=== PATIENT | male | born 1955 | race Caucasian/White ===

== ENCOUNTER 2020-09-06 09:00 | Inpatient (IN) ==
[2020-09-06] MEDS ORDERED: GLUCAGON 1 MG VIAL IM PRN ×2 (09:05)
[2020-09-06] MEDS ORDERED: DEXTROSE 50% 25 GM/50 ML VIAL IV PRN ×2 (09:05)
[2020-09-06] MEDS ORDERED: CLORAZEPATE 3.75 MG TABLET PO PRN (09:09)
[2020-09-06] MEDS ORDERED: NITROGLYCERIN SL 0.4 MG TABLET SL PRN (09:10)
[2020-09-06] MEDS ORDERED: MORPHINE 4 MG/1 ML VIAL IV PRN (09:10)
[2020-09-06 10:06] LABS: Basophils % 0.6 % (0.0-0.8); Eosinophils # 0.1 10*3/uL (0.0-0.87); Eosinophils % 2.1 % (0.00-10.9); Hematocrit 39.6 VOL% (42.0-52.0); Hemoglobin 13.7 GM/DL (14.0-18.0); Immature Granulocytes % 0.8 %; Immature Granulocytes Absolute 0.04 #; Lymphocytes # 0.8 10*3/uL (1.4-4.0); Lymphocytes % 16.9 % (21.2-54.2); Mean Corpuscular HGB Conc 34.6 GM/DL (32-36); Mean Corpuscular Volume 95.4 FL (87-102); Mean Platelet Volume 9.6 FL (9.6-12.0); Monocytes % 9.4 % (1.7-12.7); Neutrophils % 70.2 % (38.7-73.9); Platelet Count 170 T/CUMM (130-400); Red Blood Count 4.15 MC/CUMM (3.8-5.5); Red Cell Distribution Width 12.7 % (9.3-17.3); White Blood Count 4.8 T/CUMM (4-12)
[2020-09-06 10:25] LABS: Albumin 4.3 G/DL (3.4-5.0); Bilirubin,Total 0.6 MG/DL (0.2-1.0); Calcium 9.1 MG/DL (8.5-10.1); Potassium 4.5 MMOL/L (3.5-5.1)
[2020-09-06] MEDS: CHLORHEXIDINE 4% SOLN 118 ML BOTTLE TOP SCH ×3 (11:24→21:53)
[2020-09-06] MEDS: INSULIN REGULAR 100 UNIT/ML SUBCUT SCH ×3 (11:52→21:59)
[2020-09-06] MEDS: SODIUM CHLORIDE 0.9% 1,000 ML IV SCH (11:53)
[2020-09-06] MEDS: CHLORHEXIDINE 0.12% ORAL RINSE 60 ML BOTTLE SWISH/SPIT SCH ×2 (11:53→21:54)
[2020-09-06] MEDS ORDERED: hydrALAZINE 20 MG/1 ML VIAL IV PRN (12:37)
[2020-09-06 14:53] LABS: ABG Base Excess 2.7 MMOL/L (-2.5-2.5); ABG HCO3 26.8 MMOL/L (20-26); ABG Oxygen Saturation 99.7 % (95-100); ABG PCO2 41.2 MM HG (35-48); ABG PH 7.428 (7.35-7.45); ABG TCO2 23.9 MMOL/L (23-27)
[2020-09-06] MEDS: clonazePAM 0.5 MG TABLET PO SCH (16:52)
[2020-09-06] MEDS ORDERED: clonazePAM 0.5 MG TABLET PO SCH (21:00)
[2020-09-06] MEDS ORDERED: ATORVASTATIN 80 MG TABLET PO SCH (21:00)
[2020-09-07] MEDS ORDERED: PAPAVERINE 60 MG/2 ML VIAL ONE (04:23)
[2020-09-07] MEDS ORDERED: VANCOMYCIN 500 MG VIAL ONE (04:24)
[2020-09-07] MEDS ORDERED: VANCOMYCIN 1,000 MG VIAL ONE (04:24)
[2020-09-07] MEDS ORDERED: CEFUROXIME INJ 1,500 MG in SYRINGE 1 EACH IV ONE (05:00)
[2020-09-07] MEDS ORDERED: CHLORHEXIDINE 4% SOLN 118 ML BOTTLE TOP ONE (05:00)
[2020-09-07] MEDS ORDERED: HEPARIN/NACL 0.9% 2 UNITS/ML 500 ML IV ONE (05:32)
[2020-09-07] MEDS ORDERED: SODIUM CHLORIDE 0.9% 250 ML IV ONE (05:32)
[2020-09-07] MEDS ORDERED: ETOMIDATE 40 MG/20 ML VIAL IV ONE (05:32)
[2020-09-07] MEDS ORDERED: LIDOCAINE 2% 5 ML VIAL ONE ×2 (05:32→10:24)
[2020-09-07] MEDS ORDERED: MIDAZOLAM 10 MG/2 ML VIAL ONE ×4 (05:32)
[2020-09-07] MEDS ORDERED: LACTATED RINGERS 1,000 ML IV ONE (05:32)
[2020-09-07] MEDS ORDERED: SODIUM CHLORIDE 0.9% 1,000 ML IV ONE ×2 (05:32→10:03)
[2020-09-07] MEDS ORDERED: SODIUM CHLORIDE 0.9% 100 ML IV ONE ×2 (05:32→09:32)
[2020-09-07] MEDS ORDERED: PHENYLEPHRINE DRIP 20 MG/250 ML PREMIX IV ONE (05:32)
[2020-09-07] MEDS ORDERED: SUFentanil 250 MCG/5 ML AMP ONE ×2 (05:32)
[2020-09-07] MEDS ORDERED: AMINOCAPROIC ACID 5,000 MG/20 ML VIAL ONE (05:32)
[2020-09-07] MEDS ORDERED: VECURONIUM 10 MG VIAL IV ONE (05:33)
[2020-09-07] MEDS ORDERED: CALCIUM CHLORIDE 1,000 MG/10 ML VIAL IV ONE ×2 (05:33→10:43)
[2020-09-07] MEDS ORDERED: SEVOFLURANE 1 UNIT/15 MINUTE INH ONE ×14 (05:33→10:44)
[2020-09-07] MEDS ORDERED: DIAZEPAM 5 MG TABLET PO STA (06:05)
[2020-09-07] MEDS: clonazePAM 0.5 MG TABLET PO SCH (06:06)
[2020-09-07] MEDS ORDERED: diphenhydrAMINE 50 MG/1 ML VIAL ONE (06:26)
[2020-09-07] MEDS ORDERED: SODIUM BICARBONATE 50 MEQ/50 ML VIAL IV ONE ×2 (07:37→10:26)
[2020-09-07] MEDS ORDERED: NITROPRUSSIDE 50 MG/2 ML VIAL ONE (07:38)
[2020-09-07] MEDS ORDERED: PHENYLEPHRINE DRIP 40 MG/250 ML PREMIX IV ONE (07:38)
[2020-09-07] MEDS ORDERED: CALCIUM CHLORIDE 1,000 MG/10 ML SYRINGE IV ONE (07:38)
[2020-09-07] MEDS ORDERED: POTASSIUM CHLORIDE RIDER 100 ML IV ONE (07:38)
[2020-09-07] MEDS ORDERED: ALBUMIN 5% 12.5 GM/250 ML VIAL IV ONE ×2 (07:41→10:25)
[2020-09-07 07:42] LABS: ABG Base Excess 2.1 MMOL/L (-2.5-2.5); ABG HCO3 26.3 MMOL/L (20-26); ABG Oxygen Saturation 99.5 % (95-100); ABG PCO2 41.7 MM HG (35-48); ABG PH 7.416 (7.35-7.45); ABG TCO2 23.7 MMOL/L (23-27); Glucose Heart Surgery 206 MG/DL (74-106); Hematocrit Heart Surgery 36.7 PERCENT (42-52); Hemoglobin Heart Surgery 11.9 G/DL (14.0-18.0); Ionized Calcium Arterial 1.15 MMOL/L (1.21-1.46); PCO2 Patient Temp Arterial 41.7 MMHG; PH Patient Temp Arterial 7.416; Patient Temperature 37 CELCIUS; Potassium Heart/CVR 3.6 MMOL/L (3.5-5.1); Sodium Heart/CVR 137 MMOL/L (135-145)
[2020-09-07] MEDS ORDERED: propofoL 200 MG/20 ML VIAL IV ONE (08:53)
[2020-09-07 09:13] LABS: Hematocrit Heart Surgery 29.3 PERCENT (42-52); Hemoglobin Heart Surgery 9.5 G/DL (14.0-18.0); PCO2 Patient Temp Venous 38.8 MM HG; PH Patient Temp Venous 7.411; PO2 Patient Temp Venous 38.2 MM HG; Potassium Heart/CVR 4.8 MMOL/L (3.5-5.1); VBG Base Excess 0.2 MEQ/L (0-4); VBG HCO3 24.3 MEQ/L (24-28); VBG Oxygen Saturation 77.3 %; VBG PCO2 42.7 MMHG (41-51); VBG PH 7.382; VBG PO2 43.9 MMHG (17-40); VBG Total CO2 23.4 MMOL/L
[2020-09-07 09:44] LABS: Hematocrit Heart Surgery 30.7 PERCENT (42-52); Hemoglobin Heart Surgery 9.9 G/DL (14.0-18.0); PCO2 Patient Temp Venous 34.6 MM HG; PH Patient Temp Venous 7.426; PO2 Patient Temp Venous 39.2 MM HG; VBG Base Excess -1.1 MEQ/L (0-4); VBG HCO3 23.2 MEQ/L (24-28); VBG Oxygen Saturation 81.2 %; VBG PH 7.383; VBG PO2 48.2 MMHG (17-40); VBG Total CO2 21.8 MMOL/L
[2020-09-07] MEDS: CHLORHEXIDINE 0.12% ORAL RINSE 60 ML BOTTLE SWISH/SPIT SCH ×2 (09:47→20:44)
[2020-09-07] MEDS: INSULIN REGULAR 100 UNIT/ML SUBCUT SCH (09:47)
[2020-09-07 09:56] LABS: Bacteria,Urine Occasional /HPF (Few); Bilirubin,Urine Negative (Negative); Blood, Urine Small mg/dL (Negative); Glucose,Urine (UA) Negative (Negative); Ketones,Urine Negative (Negative); Nitrite,Urine Negative (Negative); Protein,Urine Negative; RBC,Urine 1 /HPF (0-4); Squamous Epithelial Cell,Urine Occasional /HPF (0-10); Urine Appearance CLEAR (Clear); Urine Color Straw (Yellow); Urine Specific Gravity 1.006 (1.001-1.035); Urine Urobilinogen < 2.0 EU/DL (0.2-1.0)
[2020-09-07] MEDS ORDERED: ALBUMIN 25% 25 GM/100 ML VIAL IV ONE (10:24)
[2020-09-07] MEDS ORDERED: MAGNESIUM SULFATE 5 GM/10 ML VIAL IV ONE (10:24)
[2020-09-07] MEDS ORDERED: methylPREDNISolone SOD SUC 1,000 MG/8 ML VIAL ONE (10:24)
[2020-09-07] MEDS ORDERED: PROTAMINE SULFATE 250 MG/25 ML VIAL IV ONE (10:25)
[2020-09-07] MEDS ORDERED: MANNITOL 100 GM/500 ML BAG IV ONE (10:25)
[2020-09-07] MEDS ORDERED: DEXTROSE 5% KCL 20 MEQ 20 MEQ/1,000 ML BAG IV ONE (10:25)
[2020-09-07] MEDS ORDERED: PROTAMINE SULFATE 50 MG/5 ML VIAL IV ONE (10:26)
[2020-09-07] MEDS ORDERED: FUROSEMIDE 20 MG/2 ML VIAL ONE (10:26)
[2020-09-07] MEDS ORDERED: HEPARIN 10,000 UNIT/10 ML VIAL ONE (10:26)
[2020-09-07 10:33] LABS: ABG Base Excess -2.8 MMOL/L (-2.5-2.5); ABG HCO3 21.9 MMOL/L (20-26); ABG Oxygen Saturation 97.9 % (95-100); ABG PCO2 37.3 MM HG (35-48); ABG PH 7.386 (7.35-7.45); ABG PO2 136.4 MM HG (80-95); Glucose Heart Surgery 295 MG/DL (74-106); Hemoglobin Heart Surgery 10.7 G/DL (14.0-18.0); Ionized Calcium Arterial 1.03 MMOL/L (1.21-1.46); PCO2 Patient Temp Arterial 37.3 MMHG; PH Patient Temp Arterial 7.386; PO2 Patient Temp Arterial 136.4 MM HG; Patient Temperature 37 CELCIUS; Potassium Heart/CVR 4.5 MMOL/L (3.5-5.1); Sodium Heart/CVR 129 MMOL/L (135-145)
[2020-09-07] MEDS ORDERED: CALCIUM CHLORIDE 1,000 MG/10 ML SYRINGE IV PRN (11:25)
[2020-09-07] MEDS ORDERED: CHLORHEXIDINE 4% SOLN 118 ML BOTTLE TOP PRN (11:25)
[2020-09-07] MEDS ORDERED: LACTATED RINGERS 250 ML IV PRN (11:25)
[2020-09-07] MEDS ORDERED: MAGNESIUM SULF RIDER 4 GM in PREMIX 1 EACH IV PRN (11:25)
[2020-09-07] MEDS ORDERED: PHENYLEPHRINE DRIP 40 MG/250 ML PREMIX IV PRN (11:25)
[2020-09-07] MEDS ORDERED: VECURONIUM 10 MG VIAL IV PRN ×2 (11:25)
[2020-09-07] MEDS ORDERED: ACETAMINOPHEN 650 MG SUPP RECTAL PRN (11:25)
[2020-09-07] MEDS ORDERED: DEXTROSE 50% 25 GM/50 ML VIAL IV PRN ×2 (11:25)
[2020-09-07] MEDS ORDERED: MIDAZOLAM 2 MG/2 ML VIAL IV PRN (11:25)
[2020-09-07] MEDS ORDERED: INSULIN REGULAR 100 UNIT/ML IV ONE (11:25)
[2020-09-07] MEDS ORDERED: NITROPRUSSIDE 100 MG in DEXTROSE 5% 250 ML IV PRN (11:25)
[2020-09-07] MEDS ORDERED: MIDAZOLAM 10 MG/2 ML VIAL IV PRN (11:25)
[2020-09-07] MEDS ORDERED: MORPHINE 10 MG/1 ML VIAL IV PRN (11:25)
[2020-09-07] MEDS ORDERED: ONDANSETRON 4 MG/2 ML VIAL IV PRN (11:25)
[2020-09-07] MEDS ORDERED: MAGNESIUM SULF RIDER 2 GM in PREMIX 1 EACH IV PRN (11:25)
[2020-09-07] MEDS ORDERED: INSULIN REGULAR 100 UNIT/ML IV PRN (11:25)
[2020-09-07] MEDS ORDERED: POTASSIUM CHLORIDE RIDER 10 MEQ in PREMIX 1 EACH IV PRN (11:25)
[2020-09-07] MEDS ORDERED: SODIUM CHLORIDE 0.45% 1,000 ML IV SCH ×2 (11:25)
[2020-09-07 12:19] LABS: ABG HCO3 23.6 MMOL/L (20-26); ABG PCO2 43.6 MM HG (35-48); Glucose Heart Surgery 273 MG/DL (74-106); Hematocrit Heart Surgery 35.6 PERCENT (42-52); Hemoglobin Heart Surgery 11.6 G/DL (14.0-18.0); Potassium Heart/CVR 4.3 MMOL/L (3.5-5.1)
[2020-09-07 12:20] LABS: Basophils % 0.3 % (0.0-0.8); Eosinophils % 0.1 % (0.00-10.9); Hematocrit 32.1 VOL% (42.0-52.0); Hemoglobin 11.3 GM/DL (14.0-18.0); Immature Granulocytes Absolute 0.07 #; Lymphocytes # 0.3 10*3/uL (1.4-4.0); Lymphocytes % 4.8 % (21.2-54.2); Mean Corpuscular HGB Conc 35.2 GM/DL (32-36); Mean Corpuscular Volume 93.3 FL (87-102); Mean Platelet Volume 9.4 FL (9.6-12.0); Monocytes % 5.9 % (1.7-12.7); Neutrophils % 87.9 % (38.7-73.9); Platelet Count 116 T/CUMM (130-400); Red Blood Count 3.44 MC/CUMM (3.8-5.5); Red Cell Distribution Width 12.9 % (9.3-17.3); White Blood Count 7.1 T/CUMM (4-12)
[2020-09-07 12:30] LABS: INR 1.3; PT Patient Result 13.5 SECS (9.8-11.9); Partial Thromboplastin Time 28.5 SECS (23.9-33.8)
[2020-09-07] MEDS: SODIUM CHLORIDE 0.9% 1,000 ML IV SCH (12:32)
[2020-09-07] MEDS: INSULIN REGULAR DRIP 100 ML IV SCH ×2 (12:34→21:10)
[2020-09-07 12:42] LABS: Lymphocytes 3 % (20-55); Segmented Neutrophils 92 % (50-85); Total Cells Counted 100
[2020-09-07 12:43] LABS: Ovalocytes Few
[2020-09-07 12:44] LABS: Platelet Estimate Normal; Polychromasia Slight
[2020-09-07 12:46] LABS: Albumin 3.4 G/DL (3.4-5.0); Bilirubin,Total 2.9 MG/DL (0.2-1.0); Calcium 7.9 MG/DL (8.5-10.1); Osmolality,Calculated 275.2 MOS/KG (273-304); Potassium 4.2 MMOL/L (3.5-5.1); Total Protein 5.2 G/DL (6.4-8.2)
[2020-09-07 12:51] LABS: CKMB % 9.1 %
[2020-09-07 12:53] LABS: Troponin I 2.7 NG/ML (0.00-0.045)
[2020-09-07] MEDS: ALBUMIN 5% 12.5 GM in PREMIX 1 EACH IV PRN ×2 (13:58→14:54)
[2020-09-07 14:08] LABS: ABG Base Excess -0.7 MMOL/L (-2.5-2.5); ABG HCO3 23.8 MMOL/L (20-26); ABG Oxygen Saturation 96.3 % (95-100); ABG PCO2 42.6 MM HG (35-48); ABG PO2 83.7 MM HG (80-95); ABG TCO2 21.9 MMOL/L (23-27); Glucose Heart Surgery 241 MG/DL (74-106); Hematocrit Heart Surgery 36.6 PERCENT (42-52); Hemoglobin Heart Surgery 11.9 G/DL (14.0-18.0); Potassium Heart/CVR 3.9 MMOL/L (3.5-5.1)
[2020-09-07] MEDS: MORPHINE 4 MG/1 ML VIAL IV PRN ×2 (17:20→21:38)
[2020-09-07] MEDS ORDERED: FUROSEMIDE 40 MG/4 ML VIAL IV PRN (18:22)
[2020-09-07 18:35] LABS: ABG Base Excess -2.9 MMOL/L (-2.5-2.5); ABG Oxygen Saturation 94.8 % (95-100); ABG PCO2 51.9 MM HG (35-48); ABG PH 7.281 (7.35-7.45); ABG PO2 83.8 MM HG (80-95); ABG TCO2 22.2 MMOL/L (23-27); Glucose Heart Surgery 165 MG/DL (74-106); Hematocrit Heart Surgery 35.2 PERCENT (42-52); Hemoglobin Heart Surgery 11.4 G/DL (14.0-18.0); Potassium Heart/CVR 3.1 MMOL/L (3.5-5.1)
[2020-09-07] MEDS: POTASSIUM CHLORIDE RIDER 20 MEQ in PREMIX 1 EACH IV PRN ×2 (18:46→19:20)
[2020-09-07] MEDS: CEFUROXIME INJ 1,500 MG in SYRINGE 1 EACH IV SCH (18:47)
[2020-09-07] MEDS: KETOROLAC 30 MG/1 ML VIAL IV SCH (19:45)
[2020-09-07 19:46] LABS: ABG Base Excess -3.9 MMOL/L (-2.5-2.5); ABG HCO3 21.1 MMOL/L (20-26); ABG Oxygen Saturation 94.1 % (95-100); ABG PCO2 48.2 MM HG (35-48); ABG PH 7.287 (7.35-7.45); ABG PO2 78.8 MM HG (80-95); ABG TCO2 20.9 MMOL/L (23-27); Glucose Heart Surgery 153 MG/DL (74-106); Potassium Heart/CVR 3.6 MMOL/L (3.5-5.1)
[2020-09-07 20:07] LABS: CKMB % 9.5 %
[2020-09-07 20:10] LABS: Troponin I 1.91 NG/ML (0.00-0.045)
[2020-09-07 21:31] LABS: ABG Base Excess -2.5 MMOL/L (-2.5-2.5); ABG HCO3 22.3 MMOL/L (20-26); ABG Oxygen Saturation 94.2 % (95-100); ABG PCO2 44.2 MM HG (35-48); ABG PH 7.333 (7.35-7.45); ABG PO2 76.4 MM HG (80-95); ABG TCO2 21.2 MMOL/L (23-27); Glucose Heart Surgery 137 MG/DL (74-106); Hematocrit Heart Surgery 33.8 PERCENT (42-52); Potassium Heart/CVR 3.9 MMOL/L (3.5-5.1)
[2020-09-07 23:15] LABS: ABG Base Excess -1.2 MMOL/L (-2.5-2.5); ABG HCO3 23.4 MMOL/L (20-26); ABG Oxygen Saturation 97.5 % (95-100); ABG PCO2 46.8 MM HG (35-48); ABG PH 7.334 (7.35-7.45); ABG PO2 96.6 MM HG (80-95); ABG TCO2 22.6 MMOL/L (23-27); Glucose Heart Surgery 120 MG/DL (74-106); Hematocrit Heart Surgery 32.8 PERCENT (42-52); Hemoglobin Heart Surgery 10.6 G/DL (14.0-18.0); Potassium Heart/CVR 4.1 MMOL/L (3.5-5.1)
[2020-09-08 00:03] LABS: ABG Base Excess -0.2 MMOL/L (-2.5-2.5); ABG HCO3 24.2 MMOL/L (20-26); ABG Oxygen Saturation 96.7 % (95-100); ABG PCO2 45.1 MM HG (35-48); ABG PO2 84.3 MM HG (80-95); ABG TCO2 23.1 MMOL/L (23-27); Glucose Heart Surgery 122 MG/DL (74-106); Hematocrit Heart Surgery 33.3 PERCENT (42-52); Hemoglobin Heart Surgery 10.8 G/DL (14.0-18.0); Potassium Heart/CVR 4.1 MMOL/L (3.5-5.1)
[2020-09-08] MEDS: KETOROLAC 30 MG/1 ML VIAL IV SCH ×4 (01:12→21:01)
[2020-09-08 01:17] LABS: ABG Base Excess -0.5 MMOL/L (-2.5-2.5); ABG Oxygen Saturation 95.1 % (95-100); ABG PCO2 45.3 MM HG (35-48); ABG PH 7.355 (7.35-7.45); ABG PO2 77.4 MM HG (80-95); Glucose Heart Surgery 131 MG/DL (74-106); Hematocrit Heart Surgery 32.4 PERCENT (42-52); Hemoglobin Heart Surgery 10.5 G/DL (14.0-18.0); Potassium Heart/CVR 4.1 MMOL/L (3.5-5.1)
[2020-09-08 04:03] LABS: ABG Base Excess 0.7 MMOL/L (-2.5-2.5); ABG Oxygen Saturation 92.9 % (95-100); ABG PCO2 46.7 MM HG (35-48); ABG PH 7.362 (7.35-7.45); ABG PO2 66.6 MM HG (80-95); ABG TCO2 24.2 MMOL/L (23-27); Glucose Heart Surgery 135 MG/DL (74-106); Potassium Heart/CVR 4.8 MMOL/L (3.5-5.1)
[2020-09-08 04:19] LABS: Basophils % 0.1 % (0.0-0.8); Hematocrit 28.9 VOL% (42.0-52.0); Hemoglobin 9.8 GM/DL (14.0-18.0); Immature Granulocytes % 0.7 %; Immature Granulocytes Absolute 0.08 #; Lymphocytes # 0.4 10*3/uL (1.4-4.0); Lymphocytes % 3.6 % (21.2-54.2); Mean Corpuscular HGB Conc 33.9 GM/DL (32-36); Mean Corpuscular Volume 96.3 FL (87-102); Mean Platelet Volume 10.3 FL (9.6-12.0); Monocytes % 5.2 % (1.7-12.7); Neutrophils % 90.4 % (38.7-73.9); Platelet Count 112 T/CUMM (130-400); White Blood Count 11.4 T/CUMM (4-12)
[2020-09-08 04:37] LABS: Band Neutrophils 1 % (0-10); Hypochromasia 1+; Lymphocytes 1 % (20-55); Platelet Estimate Decreased; Segmented Neutrophils 93 % (50-85); Total Cells Counted 100
[2020-09-08 04:38] LABS: Albumin 3.8 G/DL (3.4-5.0); Bilirubin,Direct 0.36 MG/DL (0.0-0.20); Bilirubin,Total 0.6 MG/DL (0.2-1.0); Calcium 7.9 MG/DL (8.5-10.1); Osmolality,Calculated 275.7 MOS/KG (273-304); Potassium 4.8 MMOL/L (3.5-5.1); Total Protein 5.8 G/DL (6.4-8.2)
[2020-09-08 04:45] LABS: CKMB % 6.6 %
[2020-09-08 04:51] LABS: Troponin I 2.55 NG/ML (0.00-0.045)
[2020-09-08] MEDS: MORPHINE 4 MG/1 ML VIAL IV PRN (05:08)
[2020-09-08] MEDS: CEFUROXIME INJ 1,500 MG in SYRINGE 1 EACH IV SCH ×2 (06:06→19:00)
[2020-09-08] MEDS ORDERED: oxyCODONE/ACETAMINOPHEN 5-325 MG TABLET PO ONE (06:23)
[2020-09-08] MEDS: INSULIN REGULAR 100 UNIT/ML SUBCUT SCH ×4 (07:27→21:01)
[2020-09-08] MEDS: CHLORHEXIDINE 0.12% ORAL RINSE 60 ML BOTTLE SWISH/SPIT SCH ×3 (08:43→21:01)
[2020-09-08] MEDS ORDERED: ONDANSETRON 4 MG/2 ML VIAL IV PRN (09:03)
[2020-09-08] MEDS ORDERED: GLUCAGON 1 MG VIAL IM PRN (09:03)
[2020-09-08] MEDS ORDERED: MAGNESIUM SULF RIDER 2 GM in PREMIX 1 EACH IV PRN (09:03)
[2020-09-08] MEDS ORDERED: MAGNESIUM SULF RIDER 4 GM in PREMIX 1 EACH IV PRN (09:03)
[2020-09-08] MEDS ORDERED: ALUMINUM/MAGNES/SIMETH MAX STR 30 ML UDCUP PO PRN (09:03)
[2020-09-08] MEDS ORDERED: ACETAMINOPHEN 325 MG TABLET PO PRN (09:03)
[2020-09-08] MEDS ORDERED: DEXTROSE 50% 25 GM/50 ML VIAL IV PRN (09:03)
[2020-09-08] MEDS: allopurinoL 300 MG TABLET PO SCH (09:43)
[2020-09-08] MEDS: FERROUS SULFATE 325 MG TABLET PO SCH (09:43)
[2020-09-08] MEDS: lisinopriL 20 MG TABLET PO SCH (09:43)
[2020-09-08] MEDS: glyBURIDE 5 MG TABLET PO SCH (09:43)
[2020-09-08] MEDS: DOCUSATE SODIUM 100 MG CAPSULE PO SCH (09:43)
[2020-09-08] MEDS: SERTRALINE 100 MG TABLET PO SCH (09:43)
[2020-09-08] MEDS: ASPIRIN EC 325 MG TABLET PO SCH (09:43)
[2020-09-08] MEDS: clonazePAM 0.5 MG TABLET PO SCH ×4 (09:43→21:01)
[2020-09-08] MEDS: PANTOPRAZOLE 40 MG TABLET PO SCH (09:43)
[2020-09-08] MEDS: METOPROLOL SUCCINATE XL 50 MG TABLET PO SCH (09:44)
[2020-09-08] MEDS: SODIUM CHLOR 0.45% KCL 20 MEQ 20 MEQ/1,000 ML BAG IV SCH ×2 (09:44→18:50)
[2020-09-09] MEDS: KETOROLAC 30 MG/1 ML VIAL IV SCH ×4 (01:30→20:47)
[2020-09-09 04:12] LABS: Basophils % 0.1 % (0.0-0.8); Hematocrit 28.7 VOL% (42.0-52.0); Hemoglobin 9.6 GM/DL (14.0-18.0); Immature Granulocytes % 1.2 %; Immature Granulocytes Absolute 0.17 #; Lymphocytes % 7.4 % (21.2-54.2); Mean Corpuscular HGB Conc 33.4 GM/DL (32-36); Mean Platelet Volume 10.7 FL (9.6-12.0); Monocytes % 7.4 % (1.7-12.7); Neutrophils % 83.9 % (38.7-73.9); Platelet Count 121 T/CUMM (130-400); Red Cell Distribution Width 13.6 % (9.3-17.3); White Blood Count 13.8 T/CUMM (4-12)
[2020-09-09 04:28] LABS: Albumin 3.7 G/DL (3.4-5.0); Bilirubin,Direct 0.26 MG/DL (0.0-0.20); Bilirubin,Total 0.6 MG/DL (0.2-1.0); Calcium 7.8 MG/DL (8.5-10.1); Osmolality,Calculated 276.2 MOS/KG (273-304); Potassium 3.9 MMOL/L (3.5-5.1); Total Protein 6.5 G/DL (6.4-8.2)
[2020-09-09 04:32] LABS: Albumin 3.8 G/DL (3.4-5.0); Bilirubin,Direct 0.3 MG/DL (0.0-0.20); Bilirubin,Total 1.3 MG/DL (0.2-1.0); CKMB % 3.3 %; Total Protein 6.2 G/DL (6.4-8.2)
[2020-09-09 04:34] LABS: Troponin I 1.13 NG/ML (0.00-0.045)
[2020-09-09] MEDS ORDERED: HYDROmorphone 2 MG/1 ML VIAL IV PRN ×2 (05:40→08:18)
[2020-09-09] MEDS ORDERED: FUROSEMIDE 40 MG/4 ML VIAL IV ONE (06:00)
[2020-09-09] MEDS: glyBURIDE 5 MG TABLET PO SCH (08:53)
[2020-09-09] MEDS: lisinopriL 20 MG TABLET PO SCH (08:53)
[2020-09-09] MEDS: ASPIRIN EC 325 MG TABLET PO SCH (08:53)
[2020-09-09] MEDS: clonazePAM 0.5 MG TABLET PO SCH ×3 (08:53→20:48)
[2020-09-09] MEDS: DOCUSATE SODIUM 100 MG CAPSULE PO SCH (08:53)
[2020-09-09] MEDS: METOPROLOL SUCCINATE XL 50 MG TABLET PO SCH (08:54)
[2020-09-09] MEDS: POTASSIUM CHLORIDE 20 MEQ TABLET PO PRN ×2 (08:54→11:02)
[2020-09-09] MEDS: PANTOPRAZOLE 40 MG TABLET PO SCH (08:54)
[2020-09-09] MEDS: SERTRALINE 100 MG TABLET PO SCH (08:54)
[2020-09-09] MEDS: FERROUS SULFATE 325 MG TABLET PO SCH (08:54)
[2020-09-09] MEDS: allopurinoL 300 MG TABLET PO SCH (08:54)
[2020-09-09] MEDS: INSULIN REGULAR 100 UNIT/ML SUBCUT SCH ×4 (09:04→22:30)
[2020-09-09] MEDS: CHLORHEXIDINE 0.12% ORAL RINSE 60 ML BOTTLE SWISH/SPIT SCH ×2 (09:06→20:48)
[2020-09-09] MEDS: amLODIPine 5 MG TABLET PO SCH (10:04)
[2020-09-09] MEDS: ZALEPLON 5 MG CAPSULE PO PRN (20:56)
[2020-09-10] MEDS: KETOROLAC 30 MG/1 ML VIAL IV SCH ×4 (02:37→20:29)
[2020-09-10 05:20] LABS: Basophils % 0.1 % (0.0-0.8); Eosinophils # 0.1 10*3/uL (0.0-0.87); Eosinophils % 0.8 % (0.00-10.9); Hematocrit 27.2 VOL% (42.0-52.0); Hemoglobin 9.1 GM/DL (14.0-18.0); Immature Granulocytes % 1.3 %; Immature Granulocytes Absolute 0.12 #; Lymphocytes % 10.7 % (21.2-54.2); Mean Corpuscular HGB Conc 33.5 GM/DL (32-36); Mean Platelet Volume 10.4 FL (9.6-12.0); Monocytes % 7.4 % (1.7-12.7); Neutrophils % 79.7 % (38.7-73.9); Platelet Count 123 T/CUMM (130-400); Red Blood Count 2.72 MC/CUMM (3.8-5.5); Red Cell Distribution Width 13.4 % (9.3-17.3)
[2020-09-10 05:35] LABS: Albumin 3.4 G/DL (3.4-5.0); Bilirubin,Direct 0.33 MG/DL (0.0-0.20); Bilirubin,Total 0.8 MG/DL (0.2-1.0); Osmolality,Calculated 272.1 MOS/KG (273-304); Potassium 3.6 MMOL/L (3.5-5.1); Total Protein 6.5 G/DL (6.4-8.2)
[2020-09-10 05:40] LABS: Alanine Aminotransferase 63 U/L (16-61); Albumin 3.4 G/DL (3.4-5.0); Alkaline Phosphatase 77 U/L (45-117); Aspartate Amino Transferase 31 U/L (0-37); Bilirubin,Indirect 1.2 MG/DL (0.0-1.0); Total Protein 6.5 G/DL (6.4-8.2)
[2020-09-10 05:42] LABS: Troponin I 0.626 NG/ML (0.00-0.045)
[2020-09-10 06:01] LABS: White Blood Count 9.2 T/CUMM (4-12)
[2020-09-10 06:18] LABS: Hypochromasia 1+; Microcytosis 1+; Ovalocytes Slight; Platelet Estimate Normal
[2020-09-10] MEDS: INSULIN REGULAR 100 UNIT/ML SUBCUT SCH ×4 (08:22→21:16)
[2020-09-10] MEDS: ASPIRIN EC 325 MG TABLET PO SCH (08:29)
[2020-09-10] MEDS: amLODIPine 5 MG TABLET PO SCH (08:29)
[2020-09-10] MEDS: DOCUSATE SODIUM 100 MG CAPSULE PO SCH (08:29)
[2020-09-10] MEDS: POTASSIUM CHLORIDE 20 MEQ TABLET PO PRN ×3 (08:29→20:28)
[2020-09-10] MEDS: MAGNESIUM HYDROXIDE SUSP 30 ML UDCUP PO PRN (08:29)
[2020-09-10] MEDS: SERTRALINE 100 MG TABLET PO SCH (08:30)
[2020-09-10] MEDS: glyBURIDE 5 MG TABLET PO SCH (08:30)
[2020-09-10] MEDS: PANTOPRAZOLE 40 MG TABLET PO SCH (08:30)
[2020-09-10] MEDS: FERROUS SULFATE 325 MG TABLET PO SCH (08:30)
[2020-09-10] MEDS: clonazePAM 0.5 MG TABLET PO SCH ×3 (08:31→20:29)
[2020-09-10] MEDS: allopurinoL 300 MG TABLET PO SCH (08:31)
[2020-09-10] MEDS: METOPROLOL SUCCINATE XL 50 MG TABLET PO SCH (08:31)
[2020-09-10] MEDS: CHLORHEXIDINE 0.12% ORAL RINSE 60 ML BOTTLE SWISH/SPIT SCH ×2 (08:32→21:09)
[2020-09-10] MEDS: lisinopriL 20 MG TABLET PO SCH (08:42)
[2020-09-10] MEDS: ZALEPLON 5 MG CAPSULE PO PRN (20:28)
[2020-09-11] MEDS: KETOROLAC 30 MG/1 ML VIAL IV SCH ×4 (00:42→20:40)
[2020-09-11 05:52] LABS: Basophils % 0.3 % (0.0-0.8); Eosinophils # 0.1 10*3/uL (0.0-0.87); Eosinophils % 1.7 % (0.00-10.9); Hematocrit 26.5 VOL% (42.0-52.0); Hemoglobin 8.6 GM/DL (14.0-18.0); Immature Granulocytes % 1.1 %; Immature Granulocytes Absolute 0.09 #; Lymphocytes % 13.2 % (21.2-54.2); Mean Corpuscular HGB Conc 32.5 GM/DL (32-36); Mean Corpuscular Volume 100.4 FL (87-102); Mean Platelet Volume 10.4 FL (9.6-12.0); Monocytes % 10.3 % (1.7-12.7); Neutrophils % 73.4 % (38.7-73.9); Platelet Count 135 T/CUMM (130-400); Red Blood Count 2.64 MC/CUMM (3.8-5.5); Red Cell Distribution Width 13.1 % (9.3-17.3); White Blood Count 7.9 T/CUMM (4-12)
[2020-09-11 06:12] LABS: Albumin 3.3 G/DL (3.4-5.0); Bilirubin,Total 0.9 MG/DL (0.2-1.0); Calcium 7.8 MG/DL (8.5-10.1); Osmolality,Calculated 273.1 MOS/KG (273-304); Potassium 4.4 MMOL/L (3.5-5.1); Total Protein 6.6 G/DL (6.4-8.2)
[2020-09-11] MEDS: INSULIN REGULAR 100 UNIT/ML SUBCUT SCH ×4 (07:32→22:13)
[2020-09-11] MEDS: MAGNESIUM HYDROXIDE SUSP 30 ML UDCUP PO PRN (08:49)
[2020-09-11] MEDS: lisinopriL 20 MG TABLET PO SCH (08:50)
[2020-09-11] MEDS: clonazePAM 0.5 MG TABLET PO SCH ×3 (08:50→20:41)
[2020-09-11] MEDS: DOCUSATE SODIUM 100 MG CAPSULE PO SCH (08:51)
[2020-09-11] MEDS: glyBURIDE 5 MG TABLET PO SCH (08:51)
[2020-09-11] MEDS: METOPROLOL SUCCINATE XL 50 MG TABLET PO SCH (08:51)
[2020-09-11] MEDS: FERROUS SULFATE 325 MG TABLET PO SCH (08:51)
[2020-09-11] MEDS: allopurinoL 300 MG TABLET PO SCH (08:52)
[2020-09-11] MEDS: SERTRALINE 100 MG TABLET PO SCH (08:52)
[2020-09-11] MEDS: ASPIRIN EC 325 MG TABLET PO SCH (08:52)
[2020-09-11] MEDS: PANTOPRAZOLE 40 MG TABLET PO SCH (08:52)
[2020-09-11] MEDS: amLODIPine 10 MG TABLET PO SCH (08:52)
[2020-09-11] MEDS: CHLORHEXIDINE 0.12% ORAL RINSE 60 ML BOTTLE SWISH/SPIT SCH ×2 (08:53→20:44)
[2020-09-11] MEDS: CHLORTHALIDONE 25 MG TABLET PO SCH (13:02)
[2020-09-11] MEDS: POLYETHYLENE GLYCOL POWDER 17 GM PACK PO SCH (13:06)
[2020-09-11] MEDS: ZALEPLON 5 MG CAPSULE PO PRN (20:41)
[2020-09-12] MEDS: KETOROLAC 30 MG/1 ML VIAL IV SCH ×2 (00:31→08:43)
[2020-09-12 05:48] LABS: Basophils % 0.3 % (0.0-0.8); Eosinophils # 0.1 10*3/uL (0.0-0.87); Eosinophils % 1.8 % (0.00-10.9); Hematocrit 27.8 VOL% (42.0-52.0); Hemoglobin 8.9 GM/DL (14.0-18.0); Immature Granulocytes % 2.1 %; Immature Granulocytes Absolute 0.15 #; Lymphocytes # 0.7 10*3/uL (1.4-4.0); Lymphocytes % 10.3 % (21.2-54.2); Mean Corpuscular Volume 101.5 FL (87-102); Mean Platelet Volume 10.2 FL (9.6-12.0); Monocytes % 11.7 % (1.7-12.7); Neutrophils % 73.8 % (38.7-73.9); Platelet Count 168 T/CUMM (130-400); Red Blood Count 2.74 MC/CUMM (3.8-5.5); Red Cell Distribution Width 13.2 % (9.3-17.3); White Blood Count 7.2 T/CUMM (4-12)
[2020-09-12 06:14] LABS: Alanine Aminotransferase 87 U/L (16-61); Albumin 3.3 G/DL (3.4-5.0); Alkaline Phosphatase 115 U/L (45-117); Aspartate Amino Transferase 45 U/L (0-37); Bilirubin,Indirect 1.4 MG/DL (0.0-1.0); Blood Urea Nitrogen 13 MG/DL (7-18); Calcium 8.5 MG/DL (8.5-10.1); Carbon Dioxide 27 MMOL/L (21-32); Estimated Glom Filtration Rate 116 ML/MIN; Glucose 125 MG/DL (74-106); Osmolality,Calculated 270.1 MOS/KG (273-304); Potassium 4.5 MMOL/L (3.5-5.1); Sodium 135 MMOL/L (136-145); Total Protein 6.7 G/DL (6.4-8.2)
[2020-09-12 06:16] LABS: Troponin I 0.256 NG/ML (0.00-0.045)
[2020-09-12] MEDS: INSULIN REGULAR 100 UNIT/ML SUBCUT SCH (08:09)
[2020-09-12] MEDS: glyBURIDE 5 MG TABLET PO SCH (08:44)
[2020-09-12] MEDS: METOPROLOL SUCCINATE XL 50 MG TABLET PO SCH (08:45)
[2020-09-12] MEDS: clonazePAM 0.5 MG TABLET PO SCH (08:45)
[2020-09-12] MEDS: lisinopriL 20 MG TABLET PO SCH (08:45)
[2020-09-12] MEDS: amLODIPine 10 MG TABLET PO SCH (08:45)
[2020-09-12] MEDS: ASPIRIN EC 325 MG TABLET PO SCH (08:45)
[2020-09-12] MEDS: FERROUS SULFATE 325 MG TABLET PO SCH (08:46)
[2020-09-12] MEDS: CHLORTHALIDONE 25 MG TABLET PO SCH (08:46)
[2020-09-12] MEDS: allopurinoL 300 MG TABLET PO SCH (08:46)
[2020-09-12] MEDS: PANTOPRAZOLE 40 MG TABLET PO SCH (08:46)
[2020-09-12] MEDS: DOCUSATE SODIUM 100 MG CAPSULE PO SCH (08:46)
[2020-09-12] MEDS: SERTRALINE 100 MG TABLET PO SCH (08:46)
[2020-09-12] MEDS: POLYETHYLENE GLYCOL POWDER 17 GM PACK PO SCH (08:47)
[2020-09-12] MEDS: CHLORHEXIDINE 0.12% ORAL RINSE 60 ML BOTTLE SWISH/SPIT SCH (08:47)
[2020-09-12 12:04] VITALS: BP 165/82
== END 2020-09-12 12:48 | disposition home health service (06) | DRG 235 ==
LOC: N.5E 09:01 → N.CVR 09-07 10:44 → N.TELES 09-08 17:27

== ENCOUNTER 2021-05-03 15:28 | Inpatient (IN) ==
[2021-05-03] MEDS ORDERED: SODIUM CHLORIDE 0.9% 1,000 ML IV STA (16:25)
[2021-05-03 16:44] LABS: Basophils % 0.3 % (0.0-0.8); Eosinophils % 0.6 % (0.00-10.9); Hematocrit 23.4 VOL% (42.0-52.0); Hemoglobin 7.7 GM/DL (14.0-18.0); Immature Granulocytes % 0.6 %; Immature Granulocytes Absolute 0.04 #; Lymphocytes # 0.9 10*3/uL (1.4-4.0); Lymphocytes % 12.9 % (21.2-54.2); Mean Corpuscular HGB Conc 32.9 GM/DL (32-36); Mean Corpuscular Volume 102.6 FL (87-102); Mean Platelet Volume 10.2 FL (9.6-12.0); Monocytes % 11.5 % (1.7-12.7); Neutrophils % 74.1 % (38.7-73.9); Platelet Count 183 T/CUMM (130-400); Red Blood Count 2.28 MC/CUMM (3.8-5.5); Red Cell Distribution Width 14.4 % (9.3-17.3); White Blood Count 6.7 T/CUMM (4-12)
[2021-05-03 17:08] LABS: Albumin 3.4 G/DL (3.4-5.0); Bilirubin,Total 0.6 MG/DL (0.20-1.00); Calcium 9.2 MG/DL (8.5-10.1); Osmolality,Calculated 268.4 MOS/KG (273-304); Potassium 3.7 MMOL/L (3.5-5.1); Total Protein 6.5 G/DL (6.4-8.2)
[2021-05-03 18:21] LABS: Bilirubin,Urine Negative (Negative); Blood, Urine Negative (Negative); Glucose,Urine (UA) >=500 mg/dL (Negative); Ketones,Urine Negative (Negative); Nitrite,Urine Negative (Negative); Protein,Urine Negative; RBC,Urine 1 /HPF (0-4); Urine Appearance CLEAR (Clear); Urine Color Colorless (Yellow); Urine Urobilinogen < 2.0 EU/DL (0.2-1.0)
[2021-05-03] MEDS ORDERED: GLUCAGON 1 MG VIAL IM PRN (19:26)
[2021-05-03] MEDS ORDERED: ONDANSETRON 4 MG/2 ML VIAL IV PRN (19:26)
[2021-05-03] MEDS ORDERED: SODIUM CHLORIDE 0.9% 1,000 ML IV PRN (19:28)
[2021-05-03] MEDS ORDERED: DEXTROSE 50% 25 GM/50 ML SYRINGE IV PRN (19:55)
[2021-05-03 20:10] LABS: Folate 13.32 NG/ML (5.38-24.0)
[2021-05-03] MEDS: SODIUM CHLORIDE 0.9% 1,000 ML IV SCH (20:24)
[2021-05-03] MEDS ORDERED: PREGABALIN 50 MG CAPSULE PO SCH (21:00)
[2021-05-03] MEDS: INSULIN REGULAR 100 UNIT/ML SUBCUT SCH (22:59)
[2021-05-04 00:40] LABS: Basophils % 0.2 % (0.0-0.8); Eosinophils # 0.1 10*3/uL (0.0-0.87); Eosinophils % 1.1 % (0.00-10.9); Hematocrit 26.2 VOL% (42.0-52.0); Hemoglobin 8.7 GM/DL (14.0-18.0); Immature Granulocytes % 0.5 %; Immature Granulocytes Absolute 0.03 #; Lymphocytes # 0.9 10*3/uL (1.4-4.0); Lymphocytes % 16.8 % (21.2-54.2); Mean Corpuscular HGB Conc 33.2 GM/DL (32-36); Mean Corpuscular Volume 101.9 FL (87-102); Mean Platelet Volume 10.1 FL (9.6-12.0); Monocytes % 12.5 % (1.7-12.7); Neutrophils % 68.9 % (38.7-73.9); Platelet Count 177 T/CUMM (130-400); Red Blood Count 2.57 MC/CUMM (3.8-5.5); White Blood Count 5.5 T/CUMM (4-12)
[2021-05-04 01:03] LABS: Albumin 3.1 G/DL (3.4-5.0); Bilirubin,Total 0.4 MG/DL (0.20-1.00); Calcium 8.8 MG/DL (8.5-10.1); Osmolality,Calculated 280.3 MOS/KG (273-304); Potassium 3.7 MMOL/L (3.5-5.1); Risk Ratio 2.24; Total Protein 6.2 G/DL (6.4-8.2)
[2021-05-04 06:41] LABS: Hematocrit 27.5 VOL% (42.0-52.0); Hemoglobin 9.3 GM/DL (14.0-18.0)
[2021-05-04] MEDS ORDERED: MAGNESIUM SULF RIDER 2 GM/50 ML PREMIX IV PRN (07:16)
[2021-05-04] MEDS ORDERED: MAGNESIUM SULF RIDER 4 GM/100 ML PREMIX IV PRN (07:16)
[2021-05-04 07:47] LABS: Free T4 (Free Thyroxine) 0.98 NG/DL (0.76-1.46)
[2021-05-04] MEDS: PREGABALIN 25 MG CAPSULE PO SCH ×3 (08:56→22:03)
[2021-05-04] MEDS: PANTOPRAZOLE 40 MG VIAL IV SCH (08:57)
[2021-05-04] MEDS: ATORVASTATIN 80 MG TABLET PO SCH (08:57)
[2021-05-04] MEDS: INSULIN REGULAR 100 UNIT/ML SUBCUT SCH ×4 (09:04→22:03)
[2021-05-04] MEDS: SODIUM CHLORIDE 0.9% 1,000 ML IV SCH ×2 (10:13→22:53)
[2021-05-04 12:09] LABS: Hematocrit 28.9 VOL% (42.0-52.0); Hemoglobin 9.7 GM/DL (14.0-18.0)
[2021-05-04] MEDS ORDERED: chlordiazePOXIDE 25 MG CAPSULE PO PRN (17:26)
[2021-05-04] MEDS ORDERED: CLORAZEPATE 3.75 MG TABLET PO PRN (17:40)
[2021-05-04 20:23] LABS: Hemoglobin 10.8 GM/DL (14.0-18.0)
[2021-05-04] MEDS ORDERED: FOLIC ACID 1 MG TABLET PO SCH (21:00)
[2021-05-05 06:11] LABS: Basophils % 0.3 % (0.0-0.8); Eosinophils # 0.1 10*3/uL (0.0-0.87); Eosinophils % 2.2 % (0.00-10.9); Hematocrit 33.7 VOL% (42.0-52.0); Hemoglobin 11.1 GM/DL (14.0-18.0); Immature Granulocytes % 0.8 %; Immature Granulocytes Absolute 0.03 #; Lymphocytes # 0.7 10*3/uL (1.4-4.0); Lymphocytes % 19.8 % (21.2-54.2); Mean Corpuscular HGB Conc 32.9 GM/DL (32-36); Mean Corpuscular Volume 98.5 FL (87-102); Mean Platelet Volume 10.6 FL (9.6-12.0); Monocytes % 10.2 % (1.7-12.7); Neutrophils % 66.7 % (38.7-73.9); Platelet Count 197 T/CUMM (130-400); Red Blood Count 3.42 MC/CUMM (3.8-5.5); Red Cell Distribution Width 15.4 % (9.3-17.3); White Blood Count 3.6 T/CUMM (4-12)
[2021-05-05 06:27] LABS: Calcium 9.1 MG/DL (8.5-10.1); Osmolality,Calculated 275.4 MOS/KG (273-304); Potassium 3.3 MMOL/L (3.5-5.1)
[2021-05-05] MEDS: INSULIN REGULAR 100 UNIT/ML SUBCUT SCH (07:36)
[2021-05-05 08:04] VITALS: BP 132/61
[2021-05-05] MEDS: PREGABALIN 25 MG CAPSULE PO SCH ×2 (08:39→09:18)
[2021-05-05] MEDS: METOPROLOL SUCCINATE XL 25 MG TABLET PO SCH ×2 (08:39→09:18)
[2021-05-05] MEDS: ATORVASTATIN 80 MG TABLET PO SCH (08:39)
[2021-05-05] MEDS: PANTOPRAZOLE 40 MG VIAL IV SCH (08:40)
[2021-05-05] MEDS ORDERED: MULTIVITAMIN (BEROCCA) TABLET PO SCH (09:00)
[2021-05-05] MEDS ORDERED: THIAMINE 100 MG TABLET PO SCH (09:00)
== END 2021-05-05 11:08 | disposition home or self-care (01) | DRG 811 ==
LOC: N.ED 15:28 → N.EDINP 19:25 → SUATTDRO 19:25 → N.EDINP 23:25 → N.TELEN 23:58
PROVIDERS: ADMIT Emergency Medicine; ATTEND Internal Medicine